=== PATIENT | male | born 1995 | race Caucasian/White ===

== ENCOUNTER 2017-11-23 13:41 | Emergency (ER) | payer OTHER ==
--- NOTE | 2017-11-23 14:04 | EDPHY ---
H & P Time Seen by Provider: 11/23/17 13:45 HPI/ROS: CHIEF COMPLAINT: Testicular pain HISTORY OF PRESENT ILLNESS: Patient is a 22-year-old male presents emergency department with left testicular pain. Patient states his pain started about a month ago. He has seen in the emergency department roughly a week after the onset of his pain on 10/18/2017. At that time he had an ultrasound which showed a small varicocele. Patient states his pain improved. However a few days ago he was flat [place] airplane when he developed left testicular pain. His pain is moderate. It is worse with palpation. Patient denies being sexually active. No penile discharge. No dysuria frequency. No hematuria. REVIEW OF SYSTEMS: My complete review of systems is negative except as mentioned in the HPI. Past Medical/Surgical History: Negative Past surgical history: Negative Smoking Status: Never smoked Physical Exam: Vitals noted GENERAL: Well-appearing, in no acute distress, alert. HEENT: Eyes normal to inspection. RESPIRATORY: No respiratory distress. CVS: Normal perfusion. ABDOMEN: Soft, nontender. : Patient is circumcised. His penis appears normal. Testicles are of normal size. His left testicle is mildly tender to palpation. There is no palpable mass. Positive cremaster reflex bilaterally. BACK: No CVA tenderness. SKIN: Normal color, no rash, warm, dry. No pallor. EXTREMITIES: Normal appearing. NEURO/PSYCH: Alert and oriented, normal mood and affect. Constitutional: Initial Vital Signs Temperature (C) 36.4 C 11/23/17 13:51 Heart Rate 77 11/23/17 13:51 Respiratory Rate 16 11/23/17 13:51 Blood Pressure 139/94 H 11/23/17 13:51 O2 Sat (%) 100 11/23/17 13:51 O2 Delivery Mode Room Air Allergies/Adverse Reactions: No Known Allergies Allergy (Unverified 11/23/17 14:13) Home Medications: Medication Instructions Recorded Hydrocodone/APAP 5/325 [[place] 1 - 2 tab PO Q4 #13 tab 11/23/17 5/325 (RX)] Medical Decision Making - Diagnostics Imaging Results: Imaging Impressions Testicular Ultrasound 11/23/17 13:43 Impression: 1. Normal-appearing testicles. 2. Varicocele on the left with focal thrombosis identified that corresponds with area of tenderness along the lateral aspect left testicle. Findings discussed with Trisha Johnson M.D. at 14:37 hour, 11/23/2017. ED Course/Re-evaluation: In the emergency department discussed possible etiologies with the patient. I answered all his questions. Patient confirms that he is not sexually active. A clean-catch urine was sent. Ultrasound was ordered. Ultrasound: Please refer the dictated report. The patient has a thrombosed varicocele. No torsion. UA negative I discussed the results with the patient. I answered all his questions. Patient was given follow-up with Urology. He was instructed to use warm compress and testicular support. Differential Diagnosis: My differential includes but not limited to testicular torsion, testicular mass , varicocele, thrombosed varicocele, orchitis, epididymitis, STD - Data Points Laboratory Results: 11/23/17 14:32 Urine Color YELLOW Urine Appearance CLEAR Urine pH 7.0 (5.0-7.5) Ur Specific [place] 1.010 (1.002-1.030) Urine Protein NEGATIVE (NEGATIVE) Urine Ketones NEGATIVE (NEGATIVE) Urine Blood NEGATIVE (NEGATIVE) Urine Nitrate NEGATIVE (NEGATIVE) Urine Bilirubin NEGATIVE (NEGATIVE) Urine Urobilinogen NEGATIVE EU EU (0.2-1.0) Ur Leukocyte Esterase NEGATIVE (NEGATIVE) Urine RBC 1-3 /hpf /hpf (0-3) Urine WBC 1-3 /hpf /hpf (0-3) Ur Epithelial Cells NONE SEEN /lpf /lpf (NONE-1+) Urine Mucus TRACE /lpf /lpf (NONE-1+) Urine Glucose NEGATIVE (NEGATIVE) Departure - Departure Disposition: Home, Routine, Self-Care Clinical Impression: Left varicocele Condition: Good Instructions: Varicocele (ED), Testicle Pain (ED) Additional Instructions: Return with increasing pain, fever, vomiting or any other concerns. Call Urology to make a follow-up appointment. Referrals: EDWARD KNUTSON [Primary Care Provider] - 5-7 days, if not improved Lidia Granado MD [Medical Doctor] - 1-2 days without fail Prescriptions: Hydrocodone/APAP 5/325 [[place] 5/325 (RX)] 1 - 2 tab PO Q4 #13 tab
[2017-11-23 15:06] VITALS: BP 129/71
== END 2017-11-23 15:04 | disposition home or self-care (01) ==
DX: I86.1 Scrotal varices (principal)